=== PATIENT | female | born 1930 | race Caucasian/White ===

== ENCOUNTER 2017-11-12 07:33 | Emergency (ER) | payer MEDICARE, OTHER ==
[~2017-11-12] VITALS: Ht 160 cm; Wt 55.0 kg
[~2017-11-12 07:33] MED LIST: ACETAMIN325 MG PO; ACYCLOVIR400 MG PO; AMLODIPINE BESYL5 MG PO; AMOXICILLIN/PO500 MG PO; ASPIRIN EC81 MG PO; ASPIRIN LOW DOS81 M2 PO; ASPIRIN PO; ATIVAN1 M1 PO; ATORVASTATIN CA40 MG PO; BENADRYL25 MG PO; BISAC-EVAC10 MG RE; CARAFATE1 GM PO; CITALOPRAM20 MG PO; CLONAZEPAM0.5 MG PO; CLONAZEPAM1 M1 OR; CLONAZEPAM1 MG PO; COZAAR100 MG OR; COZAAR25 MG PO; DIABETA2.5 MG OR; DIABETA2.5 MG PO; DICLOFENAC75 MG PO; DIOVAN80 MG PO; DOXYCYCL HYC100 MG PO; ECOTRIN325 MG OR; ELIQUIS2.5 MG PO; FLORASTOR250 M1 PO; GABAPENTIN300 MG PO; GLYBURIDE2.5 M1 PO; GLYCOLAX3350 N1 PO; HUMALOG 751000 UNITS SC; HUMALOG MIX 75/25 SC; HUMALOG100 MG/ML SC; HUMALOG100 UNIT/M SC; HUMULI1 SC; HUMULIN R1 M1 SC; HUMULIN SC; HYDROCHLOROT12.5 MG PO; HYZAAR1 TA1 OR; KEFLEX500 M1 PO; KEFLEX500 MG PO; KENALOG15 GM/TUBE EX; LEVEMIR1000 UNITS SC; LEVOTHYROXIN100 MCG PO; LEXAPRO20 MG OR; LIPITOR20 MG OR; LOPRESSOR50 M1 PO; LORTAB 10 OR; LORTAB5 PO; LOSARTAN POT25 MG; LOSARTAN POT50 MG PO; LOSARTAN POTASS50 MG PO; LOSARTAN/HCT1 TA1 PO; METFORMIN500 MG PO; MILK OF MAG30 ML/UDC PO; NOVOLIN 70/30 SC; PANTOPRAZOLE SO40 MG PO; PREDNISONE1 MG PO; PREDNISONE5 MG PO; PRILOSEC20 MG PO; PRILOSEC20 MG/CAP PO; ROBITUSSIN AC10 ML PO; RYBIX ODT50 MG OR; RYBIX ODT50 MG PO; SYNTHROID125 MCG OR; TAGAMET400 MG OR; TRAMADOL HCL50 MG PO; TRAZODONE50 MG PO; VITAMIN B-12500 MCG PO; VYTORIN1 TA1; WAL ZAN PO; [UNRECOGNIZED DRUG - OTHER] PO
[2017-11-12] MEDS ORDERED: CYMBALTA30 MG PO (07:47)
[2017-11-12] MEDS ORDERED: DEPAKOTE SPR125 MG PO (07:48)
[2017-11-12] MEDS ORDERED: LEVEMIR FL100 UNIT/M SC ×2 (07:49→07:50)
[2017-11-12] MEDS ORDERED: LEVOTHYROXIN112 MC1 PO (07:51)
[2017-11-12] MEDS ORDERED: LOSARTAN POT25 MG PO (07:52)
[2017-11-12] MEDS ORDERED: OMEPRAZOLE20 MG PO (07:53)
[2017-11-12] MEDS ORDERED: MIRALAX3350 N1 PO (07:53)
[2017-11-12] MEDS ORDERED: VENLAFAXINE150 MG PO (07:54)
[2017-11-12] MEDS ORDERED: COLACE100 MG PO (07:55)
[2017-11-12] MEDS ORDERED: CLONAZEP ODT0.5 MG PO (07:55)
[2017-11-12] MEDS ORDERED: METOPROL TAR25 MG PO (07:56)
[2017-11-12] MEDS ORDERED: ELIQUIS2.5 MG (07:56)
[2017-11-12] MEDS ORDERED: ACETAMINOPHEN325 MG PO (07:58)
[2017-11-12 08:00] LABS: IMMATURE GRANULOCYTES 0.7 % (0.0-1.0); MEAN CELL VOLUME 86.4 fL CALC (80.0-100.0); MEAN CORPUSCULAR HGB 27.4 pG CALC (26.0-32.0); MEAN CORPUSCULAR HGB CONC 31.7 g/L CALC (32.0-36.0); NEUT# 7.32 thou/uL (2.00-7.15); RED BLOOD COUNT 4.78 mill/uL (4.20-5.60); RED CELL DISTRI WIDTH 15.1 % (11.5-15.5)
[2017-11-12] MEDS ORDERED: MORPHINE S20 MG/5 ML PO (08:00)
[2017-11-12 08:01] LABS: HEMATOCRIT 41.3 % (37.0-47.0); HEMOGLOBIN 13.1 g/dl (12.0-16.0)
[2017-11-12] MEDS ORDERED: TRAMADOL HYDROC50 MG (08:01)
[2017-11-12] MEDS ORDERED: ZOFRAN4 M1 PO (08:02)
[2017-11-12] MEDS ORDERED: BACTROBAN TOP (08:03)
[2017-11-12] MEDS ORDERED: ANTI-FUNGAL12 EX (08:04)
[2017-11-12 08:19] LABS: ANION GAP 17 (6-22 (CALC)); BUN 31 mg/dL (8-23); BUN/CREATININE RATIO 35 (12-20 (CALC)); CARBON DIOXIDE 27 mmol/l (22-30); CHLORIDE 97 mmol/l (95-108); CREATININE 0.9 mg/dL (0.5-1.0); GFR 59 ML/MIN (>=60 (CALC)); GFR FOR AFR.AMER. > 60 ML/MIN (>=60 (CALC)); POTASSIUM 4.7 mmol/l (3.5-5.1); SODIUM 136 mmol/l (137-146)
[2017-11-12 09:22] LABS: URINE BILIRUBIN - DIPSTICK NEGATIVE (NEGATIVE); URINE BLOOD DIPSTICK NEGATIVE (NEGATIVE); URINE COLOR YELLOW; URINE GLUCOSE - DIPSTICK NEGATIVE (NEGATIVE); URINE KETONE NEGATIVE (NEGATIVE); URINE LEUK ESTERASE NEGATIVE (NEGATIVE); URINE NITRITE - DIPSTICK NEGATIVE (Negative); URINE PROTEIN - DIPSTICK NEGATIVE (NEG-TRACE); URINE UROBILINOGEN - DIPSTICK 0.2 E.U./dL (0.2)
[2017-11-12 09:24] LABS: URINE CLARITY CLEAR
[2017-11-12 10:19] VITALS: BP 122/60
== END 2017-11-12 11:12 ==
LOC: ED 07:33
PROVIDERS: Family Medicine
DX: R41.82 Altered mental status, unspecified (principal); S46.911A Strain of unspecified muscle, fascia and tendon at shoulder and upper arm level, right arm, initial encounter; I69.954 Hemiplegia and hemiparesis following unspecified cerebrovascular disease affecting left non-dominant side; X58.XXXA Exposure to other specified factors, initial encounter
CPT/HCPCS: J2060

== ENCOUNTER 2017-12-19 15:00 | Inpatient (IN) | payer MEDICARE, OTHER ==
[~2017-12-19] VITALS: Ht 160 cm; Wt 78.9 kg
[~2017-12-19 15:00] MED LIST changes: +ACETAMINOPHEN325 MG PO; +ANTI-FUNGAL12 EX; +BACTROBAN TOP; +CLONAZEP ODT0.5 MG PO; +COLACE100 MG PO; +CYMBALTA30 MG PO; +DEPAKOTE SPR125 MG PO; +ELIQUIS2.5 MG; +LEVEMIR FL100 UNIT/M SC; +LEVOTHYROXIN112 MC1 PO; +LOSARTAN POT25 MG PO; +METOPROL TAR25 MG PO; +MIRALAX3350 N1 PO; +MORPHINE S20 MG/5 ML PO; +OMEPRAZOLE20 MG PO; +TRAMADOL HYDROC50 MG; +VENLAFAXINE150 MG PO; +ZOFRAN4 M1 PO
--- NOTE | 2017-12-19 15:24 | NUR ---
PATIENT TO ROOM VIA WHEELCHAIR AND MIRANDA CHAIR USED TO TRANSFER PATIENT TO STRETCHER. PHYSICIAN AT BEDSIDE FOR EVAL
--- NOTE | 2017-12-19 15:41 | NUR ---
PT SENT OVER TO ER FOR DISTENDED ABD. PT SCREAMING/YELLING IN PAIN. STATES "EVERYTHING HURTS". PT DRY HEAVING. PT CONFUSED. MIRANDA LIFT USED TO TRANSFER PT FROM TO ER BED. IN ROOM. IV ESTABLISHED. ABG COMPLETED. PT MEDICATED FOR NAUSEA/PAIN. @BEDSIDE.
--- NOTE | 2017-12-19 16:22 | NUR ---
ROQUE PLACED ON PT FOR UA COLLECTION. PT SCREAMING "OH WEE". @BEDSIDE. WILL CONTINUE TO MONITOR.
[2017-12-19 16:34] LABS: ALBUMIN 3.6 g/dL (3.2-5.0); ALKALINE PHOSPHATASE 105 u/l (38-126); ANION GAP 15 (6-22 (CALC)); BILIRUBIN, TOTAL 0.3 mg/dL (0.0-1.4); BUN 26 mg/dL (8-23); BUN/CREATININE RATIO 31 (12-20 (CALC)); CARBON DIOXIDE 29 mmol/l (22-30); CHLORIDE 96 mmol/l (95-108); CREATININE 0.8 mg/dL (0.5-1.0); GFR > 60 ML/MIN (>=60 (CALC)); GFR FOR AFR.AMER. > 60 ML/MIN (>=60 (CALC)); SGOT/AST 20 u/l (9-36); SGPT/ALT 26 u/l (11-66); SODIUM 134 mmol/l (137-146); TOTAL PROTEIN 7.1 g/dL (6.3-8.2)
--- NOTE | 2017-12-19 16:49 | NUR ---
PT CONTINUE TO SCREAM. EDP OK'D TO GET THE BIOFREEZE FROM HIS CAR FOR HER LEG, WHICH HE APPLIED. PT SCREAMING "OH MARTINA, HELP ME".
[2017-12-19 17:25] LABS: HEMOGLOBIN 12.5 g/dl (12.0-16.0); IMMATURE GRANULOCYTES 0.5 % (0.0-1.0); MEAN CELL VOLUME 87.5 fL CALC (80.0-100.0); MEAN CORPUSCULAR HGB 27.4 pG CALC (26.0-32.0); MEAN CORPUSCULAR HGB CONC 31.3 g/L CALC (32.0-36.0); NEUT# 4.83 thou/uL (2.00-7.15); RED BLOOD COUNT 4.57 mill/uL (4.20-5.60); RED CELL DISTRI WIDTH 14.9 % (11.5-15.5)
--- NOTE | 2017-12-19 17:31 | NUR ---
PT ROLLED TO RIGHT SIDE, WEDGE FOR COMFORT. PTS FAMILY CONCERNED WITH WOUND TO PTS BACK. EDP ASSESED A RASH TO UPPER BACK AND BLANCHING TO BUTTOCKS AREA.
--- NOTE | 2017-12-19 17:47 | NUR ---
LAB @BEDSIDE FOR LA COLLECTION. GIVEN BOTTLE OF WATER.
[2017-12-19] MEDS ORDERED: KEFLEX500 M1 PO (17:49)
[2017-12-19] MEDS ORDERED: BIOFREEZE (17:49)
[2017-12-19] MEDS ORDERED: MYLANT3 PO (17:49)
--- NOTE | 2017-12-19 17:50 | NUR ---
UNABLE TO VERIFY TIME AND DATE OF MEDICATION ADMINSTRATION.
--- NOTE | 2017-12-19 18:08 | NUR ---
PT SLEEPING. 02 GOING UP & DOWN SINCE ATIVAN, 2L NC PLACED ON PT. LONG TIME FAMILY FRIEND (AKA: DAUGHTER) @BEDSIDE. WENT TO GO EAT.
[2017-12-19 18:22] LABS: URINE BILIRUBIN - DIPSTICK NEGATIVE (NEGATIVE); URINE BLOOD DIPSTICK TRACE-LYSED (NEGATIVE); URINE CLARITY TURBID; URINE COLOR YELLOW; URINE GLUCOSE - DIPSTICK 100 mg/dL (NEGATIVE); URINE KETONE TRACE mg/dL (NEGATIVE); URINE LEUK ESTERASE SMALL (NEGATIVE); URINE NITRITE - DIPSTICK NEGATIVE (Negative); URINE PH 6.5 (4.5-8.0); URINE PROTEIN - DIPSTICK TRACE mg/dL (NEG-TRACE); URINE UROBILINOGEN - DIPSTICK 0.2 E.U./dL (0.2)
[2017-12-19 18:31] LABS: URINE SQUAMOUS EPITHELIAL CELL FEW EPI/hpf (0-FEW)
--- NOTE | 2017-12-19 19:42 | NUR ---
Admission Note Report Given to: Transported by: Wheelchair X Stretcher Transported with: X Nurse Transporter X Patent IV X O2 X Shoe Dyer
--- NOTE | 2017-12-19 20:06 | NUR ---
PT TRANSFERED TO ICU 5 BY STRETCHER, WITH TELE & O2 IN STABLE CONDITION.
--- NOTE | 2017-12-19 20:11 | NUR ---
87 yr old white female admitted icu5 per stretcher from er. transferred x3 to bed. bed weight obtained. o2 cont per nc. monitoring and evaluation advisor shows sinus rhythm. #22 rt wrist saline lock. external wick cath in place. history obtained per er record, & family friend. oriented to room. mrsa swab sent. fall & contact isolation initiated.
[2017-12-19 20:30] VITALS: BP 131/66
[2017-12-19 20:45] VITALS: BP 108/59
[2017-12-19 21:00] VITALS: BP 119/60
[2017-12-19 21:15] VITALS: BP 101/46
--- NOTE | 2017-12-19 22:00 | NUR ---
eyes closed. no distress. desk monitor shows sinus rhythm pvcs.
[2017-12-19 23:15] VITALS: BP 103/62
[2017-12-20] VITALS (7 sets, daily range): BP systolic 93–135; BP diastolic 43–58
--- NOTE | 2017-12-20 00:01 | NUR ---
eyes closed. no distress. materials handling coordinator shows sinus rhythm pvcs.
--- NOTE | 2017-12-20 02:00 | NUR ---
resting quietly. resps even & unlabored. no apparent distress.
--- NOTE | 2017-12-20 03:40 | NUR ---
lab here. blood drawn.
[2017-12-20 04:26] LABS: HEMOGLOBIN 11.3 g/dl (12.0-16.0); IMMATURE GRANULOCYTES 0.5 % (0.0-1.0); MEAN CELL VOLUME 88.9 fL CALC (80.0-100.0); MEAN CORPUSCULAR HGB 27.2 pG CALC (26.0-32.0); MEAN CORPUSCULAR HGB CONC 30.5 g/L CALC (32.0-36.0); NEUT# 4.06 thou/uL (2.00-7.15); RED BLOOD COUNT 4.16 mill/uL (4.20-5.60)
--- NOTE | 2017-12-20 07:00 | NUR ---
PT LAYING IN BED RESTING WITH EYES CLOSED, AROUSES EASILY TO VERBAL STIMULI, PT AFEBRILE TAMP 98.5, HR 66, RESP. 18, BP 118/51, O2 99% ON 2L VIA NC, LUNG SOUNDS CLEAR IN ALL BELLO, PT ORIENTED TO PERSON, PERRL, STRONG RADIAL PULSES, WEAK PEDAL PULSES, LEFT SIDED WEAKNESS DO TO HX OF CVA, 20G RW IV SALINE LOCKED, NO REDNESS OR DRAINAGE AT SITE, PURE WICK CATH REMAINS IN PLACE, AM ASSESSMENT COMPLETE, SEE INTERVENTIONS, SAFETY MEASURES REINFORCED, CALL [facility] WITHIN REACH
--- NOTE | 2017-12-20 07:30 | NUR ---
SETUP ASSISTANCE PROVIDED WITH AM MEAL TRAMesha
--- NOTE | 2017-12-20 08:10 | NUR ---
PT LAYING IN BED RESTING WITH EYES CLOSED, NO S/S OF DISTRESS, TOLERATED AM MEAL WELL, CALL [facility] WITHIN REACH
--- NOTE | 2017-12-20 09:35 | NUR ---
PT CALLING OUT, PT ASKING WHERE SHE IS, ATTEMPTED TO REORIENT PT, AFTER ATTEMPTING TO REORIENT PT STARTED CRYING OUT EXTREMELY LOUD AND LOOKING AROUND AND YELLS OUT "THEY GAVE ME SO MANY SHOTS"
--- NOTE | 2017-12-20 09:50 | NUR ---
PT WASHED AND LINENS CHANGED, PT TOLERATED WELL
--- NOTE | 2017-12-20 09:50 | NUR ---
PURE WICK CHANGED AT THIS TIME
--- NOTE | 2017-12-20 10:17 | NUR ---
VISITOR AT BEDSIDE, PT CALLING OUT "WHERE AM I", VISITOR TOLD PT, "YOU KNOW YOU ARE IN THE HOSPITAL YOU TOLD ME THAT LASTNIGHT", PT AGREED THAT SHE KNEW SHE WAS IN THE HOSPITAL
--- NOTE | 2017-12-20 11:30 | NUR ---
SETUP ASSISTANCE PROVIDED BY VISITOR PER PT REQUEST
--- NOTE | 2017-12-20 12:24 | NUR ---
PT LAYING IN BED RESTING WITH EYES OPENED, VERBALIZES NO COMPLAINTS AT THIS TIME, CALL [facility] WITHIN REACH
--- NOTE | 2017-12-20 13:15 | NUR ---
CALL PLACED TO [facility] SPOKE TO MICHELLE, GAVE PT INFO, WILL CALL BACK WITH ETA OF [facility]
--- NOTE | 2017-12-20 13:30 | NUR ---
CALL RECEIVED FROM MICHELLE ETA OF [phone] GIVEN
--- NOTE | 2017-12-20 14:50 | NUR ---
Discharge instructions given. Patient verbalizes understanding of same. Discharged in stable condition via Wheelchair to [facility] with staff. All belongings sent with pt.
== END 2017-12-20 14:50 | DRG 57 ==
LOC: ED 15:00 → ED-I 18:50 → ED 19:20 → ICU 19:21
PROVIDERS: Emergency Medicine; ADMIT Internal Medicine; ATTEND Internal Medicine
DX: I69.318 Other symptoms and signs involving cognitive functions following cerebral infarction (principal); F01.51 Vascular dementia, unspecified severity, with behavioral disturbance; E11.9 Type 2 diabetes mellitus without complications; I10 Essential (primary) hypertension; E78.5 Hyperlipidemia, unspecified; N94.89 Other specified conditions associated with female genital organs and menstrual cycle; I25.10 Atherosclerotic heart disease of native coronary artery without angina pectoris; F41.9 Anxiety disorder, unspecified; Z79.4 Long term (current) use of insulin; I48.0 Paroxysmal atrial fibrillation; E03.9 Hypothyroidism, unspecified; M35.3 Polymyalgia rheumatica; Z79.52 Long term (current) use of systemic steroids; Z95.5 Presence of coronary angioplasty implant and graft; Z90.710 Acquired absence of both cervix and uterus; Z85.038 Personal history of other malignant neoplasm of large intestine
CPT/HCPCS: J2060